=== PATIENT | male | born 1950 | race Caucasian/White ===

== ENCOUNTER 2020-01-08 01:04 | Emergency (ER) | payer MEDICARE ==
[~2020-01-08] VITALS: Ht 190.5 cm; Wt 136.4 kg
[~2020-01-08 01:04] MED LIST: ATOR20TA PO; CLOP75TA35 PO; COR3.125T PO; LISI-222 PO; NO HOME MEDS
[2020-01-08] MEDS ORDERED: diltiazem-D5W 125mg/125ml 125 ML IV ONE (02:13)
[2020-01-08] MEDS ORDERED: diltiazem 5mg/ml 5ml inj. IV ONE (02:15)
[2020-01-08] MEDS ORDERED: diltiazem-NS 100mg/100ml 100 ML IV ONE (02:15)
[2020-01-08 02:27] LABS: EOSINOPHILS # (AUTO) 0.1 X10'3 (0-0.9); HEMOGLOBIN 14.8 g/dl (14.0-17.9); LYMPHOCYTES # (AUTO) 1.9 X10'3 (1.1-4.8); MONOCYTES # (AUTO) 1.5 X10'3 (0-0.9)
[2020-01-08 02:29] LABS: BASOPHILS # (AUTO) 0.2 X10'3 (0-0.2); HEMATOCRIT 45.1 % (42.0-52.0); LYMPHOCYTES % (AUTO) 28.7 % (21-51); MEAN CORPUSCULAR HEMOGLOBIN 31.5 PG (27.0-31.0); MEAN CORPUSCULAR HGB CONC 32.9 g/dL (33.0-36.5); MEAN CORPUSCULAR VOLUME 95.6 FL (78-98); MEAN PLATELET VOLUME 9.4 FL (7.4-10.4); NEUTROPHILS # (AUTO) 2.9 X10'3 (1.8-7.7); NEUTROPHILS % (AUTO) 44.3 % (42-75); PLATELET COUNT 197 X10'3 (140-440); RED BLOOD COUNT 4.71 X10'6 (4.70-6.10); RED CELL DISTRIBUTION WIDTH 14.6 % (11.5-14.5); WHITE BLOOD COUNT 6.5 X10'3 (4.5-11.0)
[2020-01-08 02:40] LABS: PARTIAL THROMBOPLASTIN TIME 26 SECONDS (22-32)
[2020-01-08 02:43] LABS: ALANINE AMINOTRANSFERASE 27 U/L (12-78); ALBUMIN 3.8 G/DL (3.4-5.0); ALKALINE PHOSPHATASE 75 IU/L (46-116); ANION GAP 9 (8-16); ASPARTATE AMINO TRANSFERASE 29 U/L (10-37); BILIRUBIN,TOTAL 0.6 MG/DL (0.1-1.0); BLOOD UREA NITROGEN 23 MG/DL (7-18); BUN/CREATININE RATIO 14.9 (5.4-32.0); CALCIUM 9.5 MG/DL (8.5-10.1); CHLORIDE 106 MMOL/L (99-107); CREATININE 1.54 MG/DL (0.60-1.10); GLUCOSE 142 MG/DL (70-104); POTASSIUM 3.6 MMOL/L (3.5-5.1); SODIUM 144 MMOL/L (135-145); TOTAL CARBON DIOXIDE 28.8 MMOL/L (24-32); TOTAL PROTEIN 7.8 G/DL (6.4-8.2); eGFR 45 ML/MIN
--- NOTE | 2020-01-08 02:49 | NUR ---
hr 141, GIVEN CARDIZIEM 5 MG IVPUSH 15 MIN AGO, HR REMAINS 141. CARDIZIEM GTT STARTED PER ORDERS.
--- NOTE | 2020-01-08 03:05 | NUR ---
dr schwab updated that pt with no change in Hr after cardiziem push and since infusion started. Verbal for lopressor 5 mg iv push.
[2020-01-08] MEDS ORDERED: metoprolol tartrate 1mg/ml inj IV ONE ×3 (03:10→04:40)
[2020-01-08 03:34] LABS: TOTAL CELLS COUNTED 100
[2020-01-08 03:35] LABS: LARGE PLATELETS MANY; PLATELET ESTIMATE DECREASED
--- NOTE | 2020-01-08 03:54 | NUR ---
DR. BERGMAN UPDATED THAT PTS HR 134 30 MIN AFTER LOPRESSOR 5 MG IVP. VERBAL FOR ECG NOW, HE STATES PT WILL NEED ADMISSION. HE WILL TALK WITH PT SHORTLY.
--- NOTE | 2020-01-08 04:21 | NUR ---
PT AWAITING HOSPITALIST. DR. LINDQUIST AND DR. BERGMAN IN ROOM NOW TALKING WITH PT PT REPROTING HE IS NOT WANTING TO STAY IN THE HOSPITAL.
--- NOTE | 2020-01-08 04:31 | NUR ---
2ND DOSE LOPRESSOR 5 MG IV GIVEN , HR 136 WHEN ADMINISTERED. PT IS CHEERY AND TALKATIVE.
[2020-01-08 04:43] VITALS: BP 140/103
[2020-01-08] MEDS ORDERED: aspirin 81mg tab.chew PO ONE (05:10)
[2020-01-08] MEDS ORDERED: METO-411 PO (05:12)
--- NOTE | 2020-01-08 05:47 | NUR ---
DR BERGMAN EXPLAINING AMA TO PT. PT AGREES TO LEAVE AMA.
[2020-01-11] MEDS ORDERED: NO HOME MEDS (13:37)
== END 2020-01-08 05:52 | disposition left against medical advice (07) ==
LOC: ER 01:05
DX: I50.9 Heart failure, unspecified (principal); R00.0 Tachycardia, unspecified; Z98.890 Other specified postprocedural states; Z79.899 Other long term (current) drug therapy
CPT/HCPCS: 36415; 71045; 80053; 83735; 83880; 84484; 85025; 85610; 85730; 93005; 96365; 96366; 96375; 96376; 99285; J3490

== ENCOUNTER 2020-09-13 13:25 | Day surgery (SDC) | payer MEDICARE ==
[2020-09-13] VITALS (12 sets, daily range): BP systolic 101–126; BP diastolic 63–79
[~2020-09-13] VITALS: Ht 190.5 cm; Wt 135.7 kg
[~2020-09-13 13:25] MED LIST changes: +AMIO200T61 PO; +APIX5TAB3 PO; -ATOR20TA PO; -CLOP75TA35 PO; -COR3.125T PO; +FURO-149 PO; -LISI-222 PO; +METO-395 PO; -NO HOME MEDS; +THIA100T70 PO
[2020-09-13] MEDS ORDERED: ASCO-157 PO (14:00)
[2020-09-13] MEDS ORDERED: fentaNYL/PF 50MCG/1 ML 2ML syringe IV ONE (14:00)
[2020-09-13] MEDS ORDERED: FURO-150 PO (14:00)
[2020-09-13] MEDS ORDERED: SYN0.088T PO (14:00)
[2020-09-13] MEDS ORDERED: normal saline 1000ml 1,000 ML IV SCH (14:00)
[2020-09-13] MEDS ORDERED: METO50TA17 PO (14:00)
[2020-09-13] MEDS ORDERED: MIDAZolam 1mg/ml 10ml vial IV ONE (14:00)
[2020-09-13] MEDS ORDERED: ATOR10TA PO (14:00)
[2020-09-13] MEDS ORDERED: LOSA25TA96 PO (14:00)
[2020-09-13] MEDS ORDERED: POTA10CA44 PO (14:00)
[2020-09-13] MEDS ORDERED: METF500T PO ×2 (14:00→14:04)
[2020-09-13] MEDS ORDERED: AMIO200T61 PO (14:04)
[2020-09-13] MEDS ORDERED: APIX5TAB3 PO (14:05)
[2020-09-13 14:46] LABS: BASOPHILS # (AUTO) 0.1 X10'3 (0-0.2); LYMPHOCYTES # (AUTO) 1.6 X10'3 (1.1-4.8)
[2020-09-13 14:48] LABS: BASOPHILS % (AUTO) 1.4 % (0-1); HEMOGLOBIN 16.4 g/dl (14.0-17.9); LYMPHOCYTES % (AUTO) 37.2 % (21-51); MEAN CORPUSCULAR HEMOGLOBIN 32.5 PG (27.0-31.0); MEAN CORPUSCULAR HGB CONC 33.4 g/dL (33.0-36.5); MEAN CORPUSCULAR VOLUME 97.3 FL (78-98); MEAN PLATELET VOLUME 9.5 FL (7.4-10.4); MONOCYTES # (AUTO) 1.6 X10'3 (0-0.9); MONOCYTES % (AUTO) 36.9 % (2-12); NEUTROPHILS % (AUTO) 23.5 % (42-75); PLATELET COUNT 151 X10'3 (140-440); RED BLOOD COUNT 5.03 X10'6 (4.70-6.10); RED CELL DISTRIBUTION WIDTH 14.4 % (11.5-14.5); WHITE BLOOD COUNT 4.2 X10'3 (4.5-11.0)
[2020-09-13 14:58] LABS: ALBUMIN 4.1 G/DL (3.4-5.0); ANION GAP 8 (8-16); BLOOD UREA NITROGEN 16 MG/DL (7-18); BUN/CREATININE RATIO 9.1 (5.4-32.0); CALCIUM 8.6 MG/DL (8.5-10.1); CHLORIDE 99 MMOL/L (99-107); CREATININE 1.76 MG/DL (0.60-1.10); GLUCOSE 102 MG/DL (70-104); POTASSIUM 3.5 MMOL/L (3.5-5.1); SODIUM 138 MMOL/L (135-145); eGFR 38 ML/MIN
[2020-09-13 15:13] LABS: NUCLEATED RED BLOOD CELLS 4 /100WBC (0-0); PLATELET ESTIMATE NORMAL; TOTAL CELLS COUNTED 100; TOXIC VACUOLATION 1+
== END 2020-09-13 19:00 | disposition home or self-care (01) ==
LOC: SSTAY O 13:25
PROVIDERS: ATTEND Internal Medicine Interventional Cardiology
DX: I48.91 Unspecified atrial fibrillation (principal); I25.10 Atherosclerotic heart disease of native coronary artery without angina pectoris; I11.0 Hypertensive heart disease with heart failure; I50.22 Chronic systolic (congestive) heart failure; I48.92 Unspecified atrial flutter; E78.49 Other hyperlipidemia; G47.10 Hypersomnia, unspecified; Z95.5 Presence of coronary angioplasty implant and graft; Z79.899 Other long term (current) drug therapy; Z79.01 Long term (current) use of anticoagulants; Z79.84 Long term (current) use of oral hypoglycemic drugs
CPT/HCPCS: 36415; 80048; 85025; 85610; 92960; 93005; 94799; J2250; J3010; 85007